=== PATIENT | male | born 1995 | race Caucasian/White ===

== ENCOUNTER 2016-04-02 09:20 | Emergency (ER) | payer OTHER ==
[~2016-04-02] VITALS: Ht 167.6 cm; Wt 86.0 kg
[~2016-04-02 09:20] MED LIST: ANAPROX DS550 M1 PO; ATARAX10 MG PO; HYDROCODON-ACE1 EAC7 PO; NOHOMEMEDS
[2016-04-02 09:33] VITALS: BP 126/85
[2016-04-04 13:44] LABS: CHLAMYDIA TRACHOMATIS NEGATIVE; NEISSERIA GONORRHOEAE NEGATIVE
== END 2016-04-02 11:41 | disposition home or self-care (01) ==
LOC: EME 09:20
PROVIDERS: Nurse Practitioner Family
DX: A64 Unspecified sexually transmitted disease (principal); Z20.2 Contact with and (suspected) exposure to infections with a predominantly sexual mode of transmission
CPT/HCPCS: 87491; 87591; 99281; 99283; J0696

== ENCOUNTER 2017-04-24 16:21 | Emergency (ER) | payer SELFPAY ==
[~2017-04-24] VITALS: Ht 167.6 cm; Wt 86.5 kg
[2017-04-24 17:58] VITALS: BP 124/75
== END 2017-04-24 18:01 | disposition home or self-care (01) ==
LOC: EME 16:21
DX: A64 Unspecified sexually transmitted disease (principal); Z20.2 Contact with and (suspected) exposure to infections with a predominantly sexual mode of transmission; F17.200 Nicotine dependence, unspecified, uncomplicated
CPT/HCPCS: 81003; J0696